=== PATIENT | male | born 1980 | race Caucasian/White ===

== ENCOUNTER 2017-03-11 15:45 | Emergency (ER) | payer OTHER ==
--- NOTE | 2017-03-11 16:56 | RAD ---
Exam: Two-view right knee COMPARISON: None INDICATION: Knee strain. [place] pop, then pain. Findings: AP and lateral views of the right knee were obtained. There is no significant joint effusion. Alignment is normal. No fracture is identified. Bone island is incidentally noted within the proximal tibia, and possibly within the distal femur, of no clinical concern. Joint spaces are maintained. IMPRESSION: No acute osseous abnormality in the right knee.
== END 2017-03-11 17:44 | disposition home or self-care (01) ==
LOC: ED 15:45
DX: S89.91XA Unspecified injury of right lower leg, initial encounter (principal); X50.0XXA Overexertion from strenuous movement or load, initial encounter; Y93.A5 Activity, obstacle course; Y92.215 Trade school as the place of occurrence of the external cause; Y99.8 Other external cause status